=== PATIENT | male | born 1985 | race Two or more races ===

== ENCOUNTER 2022-10-19 18:14 | Emergency (ER) | payer SELFPAY ==
[~2022-10-19] VITALS: Ht 175.3 cm; Wt 120.0 kg
[2022-10-19] MEDS ORDERED: AMOX1TAB16 MT (20:54)
[2022-10-19] MEDS ORDERED: TOPUD PO (20:54)
[2022-10-19] MEDS ORDERED: IBUP-2028 MT (20:54)
[2022-10-19 21:00] VITALS: BP 152/95
[2022-10-19] MEDS ORDERED: AMOXICILLIN/POTASSIUM CLAVULANATE 875/125MG TAB PO ONE (21:00)
[2022-10-19] MEDS ORDERED: IBUPROFEN 400MG TABLET PO ONE (21:00)
[2022-10-19] MEDS ORDERED: ACETAMINOPHEN 325MG TABLET PO ONE (21:00)
== END 2022-10-19 21:10 | disposition home or self-care (01) ==
LOC: ER 19:02
DX: K02.9 Dental caries, unspecified (principal); K08.89 Other specified disorders of teeth and supporting structures
CPT/HCPCS: 99284